=== PATIENT | male | born 1970 | race Caucasian/White ===

== ENCOUNTER 2016-11-29 07:09 | Emergency (ER) | payer OTHER ==
[~2016-11-29] VITALS: Ht 172.7 cm; Wt 70.9 kg
[2016-11-29 07:15] VITALS: BP 137/86
== END 2016-11-29 07:45 ==
LOC: EME 07:09 → EDBD 07:09 → EME 07:45
DX: Z04.1 Encounter for examination and observation following transport accident (principal)
CPT/HCPCS: 99281; 99283